=== PATIENT | female | born 1985 | race Caucasian/White ===

== ENCOUNTER 2018-06-28 00:32 | Emergency (ER) | payer SELFPAY ==
[~2018-06-28] VITALS: Ht 157.5 cm; Wt 138.0 kg
[~2018-06-28 00:32] MED LIST: CYCL10TA7 PO; FERR240T9 PO; HYDR-4011 PO; NAPR-985 PO; PREN-19 PO; VIT1TABL65 PO
[2018-06-28 00:40] VITALS: Ht 157.5 cm; Wt 138.0 kg
== END 2018-06-28 00:54 | disposition left against medical advice (07) ==
LOC: FTE 00:32
DX: Z53.21 Procedure and treatment not carried out due to patient leaving prior to being seen by health care provider (principal)